=== PATIENT | male | born 1985 | race Caucasian/White ===

== ENCOUNTER 2018-11-15 23:08 | Emergency (ER) | payer BC ==
--- NOTE | 2018-11-16 00:13 | ED ---
Upper Extremity Pain - HPI Summary HPI Summary: Patient presents with concern for frostbite in bilateral hands after shoveling snow for an hour outside from 11-12 noon. Patient states he had gloves on, but when he returned inside he noticed swelling, hard fingers, with subsequent blistering noticed. Denies bluish coloring. Patient states symptoms have improved since, with some residual shooting pain in fingers of bilateral hands. Denies any other pain, injury, symptoms. Medical history is none. - History of Current Complaint Chief Complaint: EDExtremityUpper Stated Complaint: RT FINGERS SWOLLEN Time Seen by Provider: 11/15/18 23:49 Hx Obtained From: Patient Mechanism Of Injury: Other Onset/Duration: Started Hours Ago Timing: Intermittent Severity Initially: Moderate Severity Currently: Moderate Pain Location: Hand, Finger Character: Dull, Aching, Throbbing Aggravating Factor(s): Nothing Alleviating Factor(s): Nothing Associated Signs & Symptoms: Positive: Swelling - Allergies/Home Medications Allergies/Adverse Reactions: Allergies Allergy/AdvReac Type Severity Reaction Status Date / Time No Known Allergies Allergy Verified 11/15/18 23:14 Home Medications: Home Medications NK [No Home Medications Reported] 11/15/18 [History Confirmed 11/15/18] PMH/Surg Hx/FS Hx/Imm Hx Endocrine/Hematology History: Denies: Hx Anticoagulant Therapy Cardiovascular History: Denies: Hx Cardiac Arrest History: Denies: Hx Dialysis Sensory History: Denies: Hx Eye Prosthesis EENT History: Denies: Hx Deafness Neurological History: Denies: Hx Dementia Psychiatric History: Denies: Hx Autism Infectious Disease History: No Infectious Disease History: Denies: Traveled Outside the [place] in Last 30 Days - Family History Known Family History: Positive: Non-Contributory - Social History Alcohol Use: Occasionally Alcohol Amount: socially Substance Use Type: Reports: None Smoking Status (MU): Never Smoked Tobacco Review of Systems Constitutional: Negative Eyes: Negative ENT: Negative Cardiovascular: Negative Respiratory: Negative Gastrointestinal: Negative Genitourinary: Negative Musculoskeletal: Negative Skin: Other Neurological: Negative Psychological: Normal All Other Systems Reviewed And Are Negative: Yes Physical Exam - Summary Physical Exam Summary: Hands and fingers of bilaterally are warm and soft. No blisters noted. No cyanosis noted. Cap refill immediate on each finger. Full range of motion of all fingers. Auto Hauler strength normal bilateral hands. No discoloration noted of any fingers. Triage Information Reviewed: Yes Vital Signs On Initial Exam: Initial Vitals Temp Pulse Resp BP Pulse Ox 98.8 F 79 16 141/98 99 11/15/18 23:10 11/15/18 23:10 11/15/18 23:10 11/15/18 23:10 11/15/18 23:10 Vital Signs Reviewed: Yes Appearance: Positive: Well-Appearing Skin: Positive: Warm Head/Face: Positive: Normal Head/Face Inspection Eyes: Positive: Normal Neck: Positive: Supple Respiratory/Lung Sounds: Positive: Clear to Auscultation Cardiovascular: Positive: Normal Abdomen Description: Positive: Nontender Musculoskeletal: Positive: Normal Neurological: Positive: Normal Psychiatric: Positive: Normal AVPU Assessment: Alert - Richard Coma Scale Best Eye Response: 4 - Spontaneous Best Motor Response: 6 - Obeys Commands Best Verbal Response: 5 - Oriented Coma Scale Total: 15 Diagnostics - Vital Signs Vital Signs Temp Pulse Resp BP Pulse Ox 11/15/18 23:10 98.8 F 79 16 141/98 99 - Laboratory Lab Statement: Any lab studies that have been ordered have been reviewed, and results considered in the medical decision making process. Course/Dx - Course Course Of Treatment: Patient presents with concern for frostbite in bilateral hands after shoveling snow for an hour outside from 11-12 noon. Patient states he had gloves on, but when he returned inside he noticed swelling, hard fingers , with subsequent blistering noticed. Denies bluish coloring. Patient states symptoms have improved since, with some residual shooting pain in fingers of bilateral hands. Denies any other pain, injury, symptoms. Medical history is none. Physical exam:Hands and fingers of bilaterally are warm and soft. No blisters noted. No cyanosis noted. Cap refill immediate on each finger. Full range of motion of all fingers. Auto Hauler strength normal bilateral hands. No discoloration noted of any fingers. Patient advised to use aloe lotion on hands. Ibuprofen for pain. Due to lack of cyanosis patient advised prognosis is complete tissue regeneration. - Diagnoses Provider Diagnoses: Frostbite of both hands Discharge - Sign-Out/Discharge Documenting (check all that apply): Patient Departure - Discharge Plan Condition: Stable Disposition: HOME Patient Education Materials: Frostbite (ED) Referrals: No Primary Care Phys,NOPCP [Primary Care Provider] - Additional Instructions: Frostbite without cyanosis (bluish coloring) will regenerate without tissue loss. Skin may blister and peel. Use aloe over skin lotion on her hands and take ibuprofen 600 mg up to 4 times a day for pain. Return to the ED for any new or worsening symptoms. - Billing Disposition and Condition Condition: STABLE Disposition: Home
[2018-11-16 00:21] VITALS: BP 138/88
== END 2018-11-16 00:20 | disposition home or self-care (01) ==
LOC: ED 23:08
DX: T33.522A Superficial frostbite of left hand, initial encounter (principal); T33.521A Superficial frostbite of right hand, initial encounter; X31.XXXA Exposure to excessive natural cold, initial encounter; Y92.9 Unspecified place or not applicable; R60.0 Localized edema
CPT/HCPCS: 99282